=== PATIENT | female | born 1990 | race Two or more races ===

== ENCOUNTER 2021-12-04 05:23 | Inpatient (IN) | payer OTHER ==
[~2021-12-04] VITALS: Ht 160 cm; Wt 67.1 kg
[2021-12-04] MEDS ORDERED: PRENATAL TABLE1 EAC3 (05:37)
== END 2021-12-06 16:22 | disposition home or self-care (01) | DRG 807 ==
LOC: LDR 05:23 → OB/GYN 05:23
PROVIDERS: ADMIT Obstetrics & Gynecology; ATTEND Obstetrics & Gynecology
PROC: 10E0XZZ Delivery of Products of Conception, External Approach (ICD-10-PCS; principal; 2021-12-04)
PROC: 4A1HXCZ Monitoring of Products of Conception, Cardiac Rate, External Approach (ICD-10-PCS; 2021-12-04)
DX: O80 Encounter for full-term uncomplicated delivery (principal); Z37.0 Single live birth; Z3A.39 39 weeks gestation of pregnancy; Z20.822 Contact with and (suspected) exposure to COVID-19

== ENCOUNTER 2023-05-20 11:34 | Emergency (ER) | payer OTHER ==
[~2023-05-20] VITALS: Ht 167.6 cm; Wt 59.9 kg
[~2023-05-20 11:34] MED LIST: PRENATAL TABLE1 EAC3
[2023-05-20] MEDS ORDERED: FAMOTIDINE/PF 20 MG in 0.9 % SODIUM CHLORIDE 8 ML IV PUSH STA (12:41)
[2023-05-20] MEDS ORDERED: DIPHENOXYLATE HCL/ATROPINE 1 UDTAB TABLET PO ONE (12:45)
[2023-05-20] MEDS ORDERED: RINGERS SOLUTION,LACTATED 1,000 ML IV SCH (12:45)
[2023-05-20 13:45] LABS: HEMATOCRIT 39.5 % (36.0-45.00); HEMOGLOBIN 13.6 g/dL (12.0-15.00); MEAN CELL VOLUME 91.1 fL (80.00-100.00); MEAN CORPUSCULAR HEMOGLOBIN 31.5 pg (27.00-32.0); MEAN CORPUSCULAR HGB CONC 34.6 g/dl (32.0-36.0); PLATELET COUNT 210 K/uL (150-450); RED BLOOD COUNT 4.34 M/uL (4.00-6.00); RED CELL DISTRIBUTION WIDTH 13.2 % (11.5-14.5)
[2023-05-20 15:08] LABS: ALBUMIN 4.1 gm/dL (3.4-5.0); BILIRUBIN TOTAL 0.75 mg/dL (0.3-1.2); CALCIUM 9.5 mg/dL (8.5-10.1); CREATININE SERUM 0.58 mg/dL (0.55-1.02); GFR 118.3; GLOBULINA 4.3 G/DL (2.4-3.5); POTASSIUM 3.63 mEq/L (3.5-5.1); TOTAL PROTEIN 8.4 gm/dL (6.4-8.2)
== END 2023-05-20 17:56 | disposition home or self-care (01) ==
LOC: ER 11:35
PROVIDERS: General Practice
DX: O99.611 Diseases of the digestive system complicating pregnancy, first trimester (principal); K59.1 Functional diarrhea; Z3A.01 Less than 8 weeks gestation of pregnancy; Z88.6 Allergy status to analgesic agent

== ENCOUNTER 2024-01-02 17:09 | Inpatient (IN) | payer OTHER ==
[~2024-01-02] VITALS: Ht 50.8 cm; Wt 3.6 kg
[2024-01-02 17:20] VITALS: BP 126/86
[2024-01-02] MEDS ORDERED: PRENATAL TABLE1 EAC1 PO (17:39)
[2024-01-02] MEDS ORDERED: OXYTOCIN 20 UNITS/500ML RL PIGGYBAG IV SCH (18:15)
[2024-01-02 18:17] LABS: HEMATOCRIT 37.1 % (36.0-45.00); HEMOGLOBIN 12.5 g/dL (12.0-15.00); MEAN CORPUSCULAR HEMOGLOBIN 32.1 pg (27.00-32.0); MEAN CORPUSCULAR HGB CONC 33.8 g/dl (32.0-36.0); PH,URINE 7.5 (5.0-8.0); PLATELET COUNT 185 K/uL (150-450); RED BLOOD COUNT 3.91 M/uL (4.00-6.00); RED CELL DISTRIBUTION WIDTH 13.6 % (11.5-14.5); URINE APPEARANCE Clear; URINE BILIRRUBIN Negative (NEGATIVE); URINE BLOOD Small; URINE COLOR Yellow; URINE GLUCOSE Negative (NEGATIVE); URINE KETONE Negative (NEGATIVE); URINE LEUKOCYTE Negative; URINE NITRATE Negative; URINE PROTEIN Negative (NEGATIVE); URINE UROBILINOGEN 0.2 E.U./dl
[2024-01-02 18:21] LABS: URINE BACTERIA 91.9 uL (0.0-1933); URINE EPITHELIAL CELLS 13.8 uL (0.0-38.8); URINE RBC 97.8 uL (0.0-20.8); URINE WBC 6.1 uL (0.0-23.2)
[2024-01-02 18:44] LABS: INR < 0.93; PARTIAL THROMBOPLASTIN TIME 24.2 SECONDS (22.0-34.0); PROTHROMBIN TIME 9.9 SECONDS (9.0-11.5)
[2024-01-02] MEDS ORDERED: MEPERIDINE HCL/PF 25 MG/ML VIAL IV ONE (23:30)
[2024-01-02] MEDS ORDERED: PROMETHAZINE HCL 25 MG/ML AMPUL IV ONE (23:30)
[2024-01-03] MEDS ORDERED: ACETAMINOPHEN 500 MG GEL..CAP PO PRN (00:15)
[2024-01-03] MEDS ORDERED: CHLORHEXIDINE GLUCONATE 120 ML BOTTLE TP SCH (00:15)
[2024-01-03] MEDS ORDERED: OXYTOCIN 1,000 ML IV SCH (00:15)
[2024-01-03 00:18] VITALS: BP 137/81
[2024-01-03 00:35] VITALS: BP 133/67
[2024-01-03 00:50] VITALS: BP 139/70
[2024-01-03 01:00] VITALS: BP 138/76
[2024-01-03 02:23] VITALS: BP 123/71
[2024-01-03] MEDS ORDERED: ERYTHROMYCIN BASE OPHT 1GM EACH TUBE OP ONE (03:00)
[2024-01-03] MEDS ORDERED: LIDOCAINE HCL 1% 10ML VIAL PERCUT ONE (03:00)
[2024-01-03 07:36] LABS: HEMATOCRIT 35.7 % (36.0-45.00); HEMOGLOBIN 12.4 g/dL (12.0-15.00); MEAN CELL VOLUME 92.7 fL (80.00-100.00); MEAN CORPUSCULAR HEMOGLOBIN 32.3 pg (27.00-32.0); MEAN CORPUSCULAR HGB CONC 34.9 g/dl (32.0-36.0); PLATELET COUNT 161 K/uL (150-450); RED BLOOD COUNT 3.85 M/uL (4.00-6.00); RED CELL DISTRIBUTION WIDTH 13.9 % (11.5-14.5)
[2024-01-03] MEDS ORDERED: PNV,CALCIUM 72/IRON/FOLIC ACID 1 TAB TABLET PO SCH (09:00)
[2024-01-03 17:25] VITALS: BP 100/60
[2024-01-03] MEDS ORDERED: FF) RHO(D) IMMUNE GLOBULIN (POM) IM NR (20:00)
[2024-01-04] VITALS: BP 125/75
[2024-01-04 04:00] VITALS: BP 128/80
[2024-01-04 08:37] VITALS: BP 128/85
[2024-01-04 13:18] VITALS: BP 130/74
[2024-01-04 16:20] VITALS: BP 124/67
== END 2024-01-04 17:24 | disposition home or self-care (01) | DRG 807 ==
LOC: OB/GYN 17:09 → LDR 17:09 → OB/GYN 01-03 01:20
PROVIDERS: ADMIT Obstetrics & Gynecology; ATTEND Obstetrics & Gynecology
PROC: 10E0XZZ Delivery of Products of Conception, External Approach (ICD-10-PCS; principal; 2024-01-02)
PROC: 0KQM0ZZ Repair Perineum Muscle, Open Approach (ICD-10-PCS; 2024-01-02)
PROC: 4A1HXCZ Monitoring of Products of Conception, Cardiac Rate, External Approach (ICD-10-PCS; 2024-01-02)
DX: O70.1 Second degree perineal laceration during delivery (principal); Z37.0 Single live birth; Z3A.39 39 weeks gestation of pregnancy; Z20.822 Contact with and (suspected) exposure to COVID-19